=== PATIENT | male | born 1990 | race Caucasian/White ===

== ENCOUNTER 2017-10-31 02:03 | Emergency (ER) | payer SELFPAY ==
[~2017-10-31] VITALS: Ht 188 cm; Wt 61.2 kg
[2017-10-31] MEDS ORDERED: NKM (02:16)
[2017-10-31 02:24] VITALS: BP 109/66
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
[2017-10-31 02:43] VITALS: BP 109/66
== END 2017-10-31 03:00 | disposition home or self-care (01) ==
LOC: EMR 03:00
DX: S01.112A Laceration without foreign body of left eyelid and periocular area, initial encounter (principal); S00.531A Contusion of lip, initial encounter; Y04.0XXA Assault by unarmed brawl or fight, initial encounter; Y92.9 Unspecified place or not applicable
CPT/HCPCS: 99283